=== PATIENT | female | born 1965 | race Two or more races ===

== ENCOUNTER 2017-01-30 19:00 | Inpatient (IN) | payer MEDICAID, OTHER ==
[~2017-01-30] VITALS: Ht 152.4 cm; Wt 68.0 kg
--- NOTE | 2017-01-30 19:15 | NUR ---
Pt c/o neck and lower back pain and sudden onset weaknes in legs, primarily right leg. 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 Pt denies PÉREZ, dizziness, n/v, CP, SOB, no other complaints, anxiety and minimal distress noted.
[2017-01-30 19:32] LABS: BASOPHILS % (AUTO) 0.5 % (0.0-2.0); EOSINOPHILS % (AUTO) 0.5 % (0.0-7.0); HEMATOCRIT 37.8 % (37-47); LYMPHOCYTES # (AUTO) 2.6 K/UL (0.8-4.8); LYMPHOCYTES % (AUTO) 43.8 % (20.5-51.5); MEAN CORPUSCULAR HEMOGLOBIN 30.6 UUG (27.0-31.0); MEAN CORPUSCULAR HGB CONC 35 g/dL (32.0-37.0); MEAN CORPUSCULAR VOLUME 88.7 FL (81.0-99.0); MONOCYTES # (AUTO) 0.4 K/UL (0.1-1.30); MONOCYTES % (AUTO) 6.4 % (0.0-11.0); NEUTROPHILS # (AUTO) 2.9 K/UL (1.8-8.9); NEUTROPHILS % (AUTO) 48.8 % (38.5-71.5); PLATELET COUNT (AUTO) 198 K/UL (150-450); RED BLOOD CELL COUNT(AUTO) 4.26 MIL/UL (4.2-5.4); WHITE BLOOD COUNT (AUTO) 5.9 K/UL (4.0-11.2)
[2017-01-30 19:41] LABS: POTASSIUM 3.3 mmol/L (3.5-5.1)
[2017-01-30] MEDS ORDERED: IV NORMAL SALINE 1000 ML BAG IV ONE (19:45)
[2017-01-30] MEDS ORDERED: IV NORMAL SALINE 250 ML IV ONE (20:03)
[2017-01-30] MEDS ORDERED: NORMAL SALINE FLUSH 10 ML DISP.SYRIN ONE (20:03)
[2017-01-30] MEDS ORDERED: IOHEXOL 350 100 ML INFUS..BTL ONE (20:03)
--- NOTE | 2017-01-30 20:30 | NUR ---
Tele-stroke MD examined pt. Pt can now lift and hold her right leg about 5-6 inches with effort and pain. Sensation equal in both legs.
[2017-01-30] MEDS ORDERED: ASPIRIN 325 MG TABLET PO ONE (21:45)
[2017-01-30] MEDS ORDERED: ASPIRIN 325 MG TABLET ONE (22:11)
--- NOTE | 2017-01-30 22:17 | NUR ---
Called report to PERICO Vigil
[2017-01-30 22:25] LABS: *BILIRUBIN,URIN NEGATIVE (NEGATIVE); *BLOOD, URINE NEGATIVE (NEGATIVE); *CLARITY,URINE CLEAR (CLEAR); *COLOR,URINE YELLOW (YELLOW); *KETONES,URINE NEGATIVE (NEGATIVE); *PROTEIN,URINE NEGATIVE (NEGATIVE); *UROBILINOGEN,URINE 0.2 E.U./dl (NORMAL); LEUKOCYTE ESTERASE ,URINE TRACE (NEGATIVE); NITRITE, URINE NEGATIVE (NEGATIVE); UGLUCOSE NEGATIVE (NEGATIVE)
[2017-01-30 22:32] LABS: SQUAMOUS EPITHELIAL CELL,UR FEW /HPF (NONE SEEN)
--- NOTE | 2017-01-30 22:50 | NUR ---
Received patient from ER via gurney. No acute distress noted. A&O x 4. Tele leads applied. Sinus Mark. Ushered patient safely into room. NO signs of facial asymmetry. Vital signs stable. No facial dropping. Able to answer questions. Upper and lower extremities WNL. Safety initiated. Call light within reach. Belongings list done. Body assessment done. Skin intact. Admissions protocol followed. Will continue to monitor.
[2017-01-31] MEDS: BLOOD SUGAR DIAGNOSTIC 1 EACH STRIP VI SCH ×6 (00:28→23:00)
[2017-01-31] MEDS: ENOXAPARIN SODIUM 40 MG/0.4 ML DISP.SYRIN SQ SCH ×2 (00:29→20:39)
[2017-01-31] MEDS ORDERED: ENOXAPARIN SODIUM 40 MG/0.4 ML DISP.SYRIN SQ ONE (00:31)
--- NOTE | 2017-01-31 05:11 | NUR ---
No changes t/o shift. Slept t/o shift. No c/o pain, sob, h/a's, N/V. Facial symmetry. Able to move upper and lower extremities. Slight lower ext. weakness. Tele S Mark. Safety and comfort measures maintained t/o shift. All meds given as ordered. All needs met.
[2017-01-31 06:46] LABS: BASOPHILS % (AUTO) 0.6 % (0.0-2.0); EOSINOPHILS % (AUTO) 0.9 % (0.0-7.0); HEMATOCRIT 37.4 % (31.2-41.9); HEMOGLOBIN 12.6 g/dL (10.9-14.3); LYMPHOCYTES # (AUTO) 2.6 K/uL (20.0-40.0); LYMPHOCYTES % (AUTO) 52.3 % (20.5-51.5); MEAN CORPUSCULAR HEMOGLOBIN 30.2 uug (24.7-32.8); MEAN CORPUSCULAR HGB CONC 34 g/dL (32.3-35.6); MEAN CORPUSCULAR VOLUME 89.5 fL (75.5-95.3); MONOCYTES # (AUTO) 0.4 K/uL (2.0-10.0); MONOCYTES % (AUTO) 7.5 % (0.0-11.0); NEUTROPHILS # (AUTO) 1.9 K/uL (1.8-8.9); NEUTROPHILS % (AUTO) 38.7 % (38.5-71.5); PLATELET COUNT (AUTO) 161 K/uL (179-408); RED BLOOD CELL COUNT(AUTO) 4.18 MIL/uL (3.63-4.92)
[2017-01-31 07:02] LABS: CREATININE 0.9 mg/dL (0.6-1.3); POTASSIUM 3.6 mmol/L (3.5-5.1)
[2017-01-31 07:17] LABS: BILIRUBIN,TOTAL 0.3 mg/dL (0.2-1.0); TOTAL PROTEIN, SERUM 6.6 g/dL (6.4-8.2)
--- NOTE | 2017-01-31 07:42 | NUR ---
LEVONOX REMOVED FROM PYXIS AT HAND SURGEON.
[2017-01-31] MEDS: ASPIRIN EC 81 MG TABLET.DR PO SCH (08:22)
[2017-01-31 09:03] LABS: THYROID STIMULATING HORMONE 3.592 mIU/mL (0.358-3.740)
--- NOTE | 2017-01-31 12:00 | NUR ---
PT LEFT TO [facility]IA AMBULANCE FOR AN MRI TO RULE OUT CVA AND SYNCOPE. PT IS CALM COOPERATIVE, WALKING WITH OUT ASSISTANCE, NO SIGNS OF FACIAL DROOPING, ALL EXTREMITIES WNL, SPEECH WNL. PT IS STABLE FOR TRANSPORT.
--- NOTE | 2017-01-31 14:00 | NUR ---
PT ARRIVED FROM MRI AND IS STABLE, CALM , COOPERATIVE, NO SIGNS OF FACIAL DROOPING, EXTREMITIES EQUAL AND WNL, SPEECH REGUALR AND WNL. PT IS ABLE TO AMBULATE TO BED. PT IS NOW RESTING WITHOUT ANY RESPIRATORY DISTRESS.
[2017-01-31 15:26] VITALS: BP 105/55
[2017-01-31 19:05] VITALS: BP 102/63
--- NOTE | 2017-01-31 20:00 | NUR ---
RECEIVED IN BED A/0X4. SPEECH CLEAR, NO RESP DISTRESS NOTED. WILL CONTINUE TO MONITOR FOR COMFORT AND SAFETY.
[2017-01-31] MEDS: ATORVASTATIN 40 MG TABLET PO SCH ×3 (20:35→21:00)
[2017-01-31] MEDS: ACETAMINOPHEN 325 MG TABLET PO PRN (23:54)
[2017-02-01] MEDS: BLOOD SUGAR DIAGNOSTIC 1 EACH STRIP VI SCH ×2 (06:50→13:20)
--- NOTE | 2017-02-01 08:00 | NUR ---
Pt is in no acute distress. Pt c/o PÉREZ. Tylenol Given. Discussed plan of care with pt re: pain management, notify nursing for any c/o chest pain, fall precaution. Pt agreeable with plan of care. Call light is within reach.
[2017-02-01] MEDS: ASPIRIN EC 81 MG TABLET.DR PO SCH (08:07)
[2017-02-01] MEDS: ACETAMINOPHEN 325 MG TABLET PO PRN (08:12)
[2017-02-01 11:10] VITALS: BP 114/55
[2017-02-01] MEDS ORDERED: ATOR40TA PO (13:14)
[2017-02-01] MEDS ORDERED: ASPI-618 PO (13:14)
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
== END 2017-02-01 15:50 | disposition home or self-care (01) | DRG 54 ==
LOC: ER 19:04 → TELE 22:18 → MED 01-31 18:04
PROVIDERS: ADMIT Internal Medicine; ATTEND Internal Medicine
DX: G43.109 Migraine with aura, not intractable, without status migrainosus (principal); N39.0 Urinary tract infection, site not specified; E03.9 Hypothyroidism, unspecified; E78.5 Hyperlipidemia, unspecified; M54.5 Low back pain; E66.9 Obesity, unspecified; Z68.29 Body mass index [BMI] 29.0-29.9, adult; R73.03 Prediabetes; E87.6 Hypokalemia
CPT/HCPCS: 36415; 70030-TC; 70450; 70496; 70551; 71010; 71275; 84443; 85025; 85651; 85730; 92610; 93005; 93307; 93880; A4663; J1650; J3490; J7030; J7050; Q9967